=== PATIENT | male | born 1955 | race African-American/Black ===

== ENCOUNTER 2019-10-18 08:38 | Emergency (ER) | payer MEDICAID ==
[~2019-10-18] VITALS: Ht 188 cm; Wt 136.0 kg
[~2019-10-18 08:38] MED LIST: NORCO; VICODIN
[2019-10-18] MEDS: KETOROLAC 30MG/ML VIAL IV STA (09:40)
[2019-10-18] MEDS: SODIUM CHLORIDE 0.9% 1,000 ML IV ONE (09:41)
[2019-10-18 09:46] LABS: BASOPHILS % 0.8 % (0.0-2.0); EOSINOPHILS % 1.5 % (0.0-5.0); HEMOGLOBIN. 14.1 g/dL (14.0-18.0); LYMPHOCYTES % 40.7 % (20.0-50.0); MEAN CORPUSCULAR HEMOGLOBIN 31.6 pg (28.0-32.0); MEAN CORPUSCULAR VOLUME 92.2 fL (80.0-94.0); MEAN PLATELET VOLUME 8.7 fl (7.4-10.4); MONOCYTES % 11.6 % (2.0-8.0); NEUTROPHILS % 45.4 % (40.0-76.0); PLATELET 218 x1000/uL (130-400); RED BLOOD CELL COUNT 4.45 mill/uL (4.7-6.1); RED CELL DISTRIBUTION WIDTH 13.6 % (11.6-14.6)
[2019-10-18 09:53] LABS: CHLORIDE 107 mEq/L (98-107)
[2019-10-18 10:46] LABS: CLARITY URINE CLEAR (CLEAR); COLOR URINE YELLOW (YELLOW); KETONES URINE NEGATIVE (NEGATIVE); LEUKOCYTE ESTERASE URINE NEGATIVE (NEGATIVE); NITRITE URINE NEGATIVE (NEGATIVE); OCCULT BLOOD URINE NEGATIVE (NEGATIVE); PH URINE 5.5 (4.5-8.0); PROTEIN URINE NEGATIVE (NEGATIVE); SPECIFIC GRAVITY URINE 1.021 (1.005-1.030)
[2019-10-18 12:07] VITALS: BP 151/72
== END 2019-10-18 12:07 | disposition home or self-care (01) ==
LOC: ER 08:38
DX: R10.9 Unspecified abdominal pain (principal); F17.200 Nicotine dependence, unspecified, uncomplicated; F12.10 Cannabis abuse, uncomplicated; Z79.899 Other long term (current) drug therapy
CPT/HCPCS: 36415; 74176; 80053; 81003; 83690; 85025; 96374; 99284; J1885; J7030; Z7610